=== PATIENT | male | born 1990 | race Caucasian/White ===

== ENCOUNTER 2024-05-14 20:23 | Emergency (ER) | payer OTHER, SELFPAY ==
--- NOTE | ~2024-05-14 | XR_ITS ---
EXAMINATION: XR CHEST CLINICAL INFORMATION: Chest pain COMPARISON: None available. TECHNIQUE: 2 views of the chest were obtained. FINDINGS: No significant abnormality is noted involving the heart, lungs, mediastinum, bony thorax or soft tissues. XR/XR chest 2V IMPRESSION: Unremarkable examination. Electronically signed by: Sushant Wilburn DO 05/14/2024 09:52 PM EDT
--- NOTE | 2024-05-14 20:27 | ECG_ITS ---
Test Reason : CHEST PAIN Blood Pressure : / mmHG Vent. Rate : 102 BPM Atrial Rate : 102 BPM P-R Int : 150 ms QRS Dur : 094 ms QT Int : 310 ms P-R-T Axes : 059 -44 050 degrees QTc Int : 404 ms Sinus tachycardia Left axis deviation Nonspecific T wave abnormality Abnormal ECG No previous ECGs available Referred By: Ericka Wood Electronically Signed By:EDGAR DUMAS
[2024-05-14 20:43] VITALS: BP 138/95; PULSE 101; RESP 16; TEMP 36.9; O2SAT 94; BMI 32.5
--- NOTE | 2024-05-14 21:18 | ED.CHESTPAIN ---
HPI - Chest Pain General Chief Complaint: Chest Pain Stated Complaint: chest pressure Time Seen by Provider: 05/14/24 23:37 Source: patient Mode of arrival: ambulatory Limitations: no limitations History of Present Illness ED Provider: ginger ESTRADA narrative: Patient is 34 years old otherwise healthy no significant past medical history noticed right-sided chest pain since earlier today patient had COVID 3 weeks ago hardly has cough at this time no shortness a breath no leg pain Related Data Allergies Allergy/AdvReac Type Severity Reaction Status Date / Time cat dander [CAT] Allergy Unknown DIFF Verified 05/14/24 20:45 BREATHING - WATERY EYES Review of Systems Review of Systems: Yes all other systems are reviewed and are negative PMFSH Past Medical History Surgical History H/O colonoscopy Family History Family History Father No problems noted. Mother Melanoma Sister Crohn disease Social History Social History Alcohol intake: current Alcohol intake frequency: a few times a month Advance Directives: No Advance Directives Information Provided: Yes Do you have a plan to hurt others: No Plan Physical Exam Vital Signs: Vital Signs: Last Vital Signs Temp 98.0 F 05/15/24 00:23 Pulse 68 05/15/24 00:23 Resp 16 05/15/24 00:23 BP 114/76 05/15/24 00:23 Pulse Ox 96 05/15/24 00:23 O2 Del Method Room Air 05/15/24 00:23 BMI result Body Mass Index 32.5 Appearance: Alert. Oriented X3. No acute distress. Eyes: No pallor or icterus ENT: Pharynx normal. Oral Mucosa moist Neck: Normal inspection. Neck supple. CVS: Normal heart rate and rhythm. Pulses normal. No murmur rub or gallop Respiratory: No respiratory distress. Equal air entry bilateral, no wheezing/rales/rhonchi Abdomen: Soft and nontender. Bowel sounds are present, Skin: Skin warm and dry. Normal skin color. Normal skin turgor. Extremities: No lower extremity edema. No calf tenderness Neuro: Oriented X 3. No motor deficit. Course Course Course Narrative: This is an RME: Additional HPI, ROS, PE not included below will be deferred to primary provider. RME assessment and note performed by: Ericka Wood PA-C This is a 34-year-old male who presents emergency department with complaints of chest pressure which started yesterday. Shortness a breath no nausea, vomiting, diarrhea, no dizziness, no changes in vision. Plan: Labs, EKG, chest x-ray, further ER evaluation needed. Medical Decision Making Medical Decision Making [facility] Narrative: Patient has atypical right-sided chest pain noncardiac in nature low risk for PE cardiac enzymes negative labs are stable chest x-ray negative CTA done was negative for PE will discharge patient home advised to take ibuprofen as needed Differential Diagnosis Differential Diagnoses: The differential diagnosis associated with the presentation includes ACS/PE/musculoskeletal/pneumonia/pneumothorax Lab Data [facility] Lab Attestation statement: I reviewed the patient's lab results. 05/14/24 21:48 05/14/24 21:48 Labs: Lab Results 05/14/24 Range/Units 21:48 WBC 8.1 (4.8-10.8) X10*3/uL RBC 5.69 (4.60-5.80) X10*6/uL Hgb 16.0 (14.0-18.0) g/dl Hct 46.5 (42.0-52.0) % MCV 81.7 (80.0-98.0) fL MCH 28.1 (27.0-33.0) pg MCHC 34.4 (31.0-36.0) g/dl RDW 12.8 (11.0-16.0) % Plt Count 277 (160-400) X10*3/uL MPV 9.1 L (9.4-12.4) fL Immature Gran % (Auto) 0.4 (0.0-0.4) % Neut % (Auto) 66.5 (45-73) % Lymph % (Auto) 21.8 (20-40) % Nuckolls % (Auto) 7.9 (2-11) % Eos % (Auto) 2.7 (0-4) % Baso % (Auto) 0.7 (0-2) % Lymph # (Auto) 1.8 (1.2-4.9) X10*3/uL Nuckolls # (Auto) 0.6 (0.1-1.2) X10*3/uL Eos # (Auto) 0.2 (0.0-0.4) X10*3/uL Baso # (Auto) 0.1 (0.0-0.2) X10*3/uL Abs Immat Gran (auto) 0.03 (0.00-0.03) X10*3/uL Absolute Neuts (auto) 5.4 (2.0-8.3) x10*3/uL Absolute Nucleated RBC 0.000 (0.0-0.012) X10*3/uL Nucleated RBC % (auto) 0.0 (0.0-0.2) /100WBC Sodium 142 (135-145) mmol/L Potassium 3.8 (3.3-5.1) mmol/L Chloride 106 (96-108) mmol/L Carbon Dioxide 26 (22-29) mmol/L Anion Gap 14 (12-20) BUN 12 (9-16) mg/dL Creatinine 1.03 (0.5-1.4) mg/dL Estim Creat Clear Calc 111.5 Estimated GFR > 60 Random Glucose 111 (60-115) mg/dL Calcium 9.6 (8.4-10.2) mg/dL Magnesium 2.1 (1.6-2.6) mg/dL Total Bilirubin 0.5 (0.0-1.0) mg/dL Direct Bilirubin 0.2 (0.0-0.5) mg/dL AST 18 (5-37) U/L ALT 26 (0-40) U/L Alkaline Phosphatase 81 (39-117) U/L Troponin I High Sens < 2.7 (<3.5-35.0) ng/L Total Protein 7.7 (6.5-8.0) g/dL Albumin 4.4 (3.5-5.0) g/dL Influenza Type A (PCR) NEGATIVE (Negative) Influenza Type B (PCR) NEGATIVE (Negative) RSV RNA Qual (PCR) NEGATIVE (Negative) SARS-CoV-2 RNA (RT-PCR) NEGATIVE (Negative) Independent Interpretation I performed an independent interpretation of an: EKG and Plain X-Ray Interpretation: Sinus tachycardia heart rate on 2 beats per minute left axis deviation no acute ST-T changes no acute ischemia Radiology Impression Discussion of test interpretation with radiology: I have reviewed the radiologist's reading. Discharge Plan Discharge Clinical Impression: Atypical chest pain Patient Disposition: Home, Self-Care Instructions: Noncardiac Chest Pain (ED) Additional Instructions: Cause of right-sided chest pain not clear likely musculoskeletal Follow up with your PCP for further evaluation Tylenol/ibuprofen for pain Interventions: ED Discharge Assessment Last Done: 05/15/24 00:23 Discharge Date/Time: 05/15/24 00:24 Print Language: Tamazight
[2024-05-14 21:53] LABS: MANUAL DIFF FLAG NO
[2024-05-14 21:58] LABS: Basophils Absolute Auto 0.1 X10*3/uL (0.0-0.2); Basophils Percent Auto 0.7 % (0-2); Eosinophils Absolute Auto 0.2 X10*3/uL (0.0-0.4); Eosinophils Percent Auto 2.7 % (0-4); Hematocrit 46.5 % (42.0-52.0); Imm Gran Abs Auto 0.03 X10*3/uL (0.00-0.03); Imm Gran Pct Auto 0.4 % (0.0-0.4); Lymphocytes Absolute Auto 1.8 X10*3/uL (1.2-4.9); Lymphocytes Percent Auto 21.8 % (20-40); Mean Corpuscular HGB Conc 34.4 g/dl (31.0-36.0); Mean Corpuscular Hemoglobin 28.1 pg (27.0-33.0); Mean Corpuscular Volume 81.7 fL (80.0-98.0); Mean Platelet Volume 9.1 fL (9.4-12.4); Monocytes Absolute Auto 0.6 X10*3/uL (0.1-1.2); Monocytes Percent Auto 7.9 % (2-11); Neutrophils Absolute Auto 5.4 x10*3/uL (2.0-8.3); Neutrophils Percent Auto 66.5 % (45-73); Platelet Count 277 X10*3/uL (160-400); Red Blood Count 5.69 X10*6/uL (4.60-5.80); Red Cell Distribution Width 12.8 % (11.0-16.0); White Blood Count 8.1 X10*3/uL (4.8-10.8)
[2024-05-14 22:09] LABS: Alanine Aminotransferase 26 U/L (0-40); Albumin Level 4.4 g/dL (3.5-5.0); Alkaline Phosphatase 81 U/L (39-117); Anion Gap 14 (12-20); Aspartate Amino Transferase 18 U/L (5-37); Bilirubin Direct 0.2 mg/dL (0.0-0.5); Bilirubin Total 0.5 mg/dL (0.0-1.0); Blood Urea Nitrogen 12 mg/dL (9-16); Calcium 9.6 mg/dL (8.4-10.2); Carbon Dioxide 26 mmol/L (22-29); Chloride 106 mmol/L (96-108); Creatinine Clr Calc Pharmacy 111.5; Estimated Glomerular Filt Rate > 60; Glucose Random 111 mg/dL (60-115); Magnesium 2.1 mg/dL (1.6-2.6); Potassium 3.8 mmol/L (3.3-5.1); Sodium 142 mmol/L (135-145); Total Protein 7.7 g/dL (6.5-8.0)
[2024-05-14 22:16] LABS: Troponin-I High Sensitivity < 2.7 ng/L (<3.5-35.0)
[2024-05-14 22:34] LABS: Influenza A PCR NEGATIVE (Negative); Influenza B PCR NEGATIVE (Negative); Resp Syncy Virus RNA Qual PCR NEGATIVE (Negative); SARS COV2 PCR INHOUSE NEGATIVE (Negative)
[2024-05-14 23:11] VITALS: BP 128/77; PULSE 78; RESP 16; TEMP 37.1; O2SAT 96
[2024-05-15 00:23] VITALS: BP 114/76; PULSE 68; RESP 16; TEMP 36.7; O2SAT 96
== END 2024-05-15 00:24 | disposition home or self-care (01) ==
PROVIDERS: Physician Assistant Medical; Emergency Provider Internal Medicine; PCP Nurse Practitioner Family
DX: R07.89 Other chest pain (principal); Z79.899 Other long term (current) drug therapy; Z03.818 Encounter for observation for suspected exposure to other biological agents ruled out
CPT/HCPCS: 0241U; 71046; 80048; 80076; 83735; 84484; 85025; 93005; 99283

== ENCOUNTER 2024-05-28 08:11 | Outpatient (AMB) | payer OTHER, SELFPAY ==
[2024-05-28 08:14] VITALS: BP 110/72; PULSE 79; O2SAT 98; BMI 32.6
--- NOTE | 2024-05-28 08:14 | A.OFFPC_ITS ---
Vital Signs 05/28/24 08:14 Height 5 ft 7 in Weight 208 lb BMI 32.6 BP 110/72 Blood Pressure Location Rt brachial Position Sitting Pulse 79 Pulse Source Pulse Oximeter Pulse Oximetry (%) 98 Intake Visit Reasons: Ed f/u Intake Note: pt is here for ED follow up Allergies cat dander [CAT] Allergy (Unknown, Verified 05/28/24 09:00) DIFF BREATHING - WATERY EYES Medication List - Last Reconciled 05/28/24 by YOAN Moss No Known Home Meds Tobacco use date assessed: 05/28/24 Dental Screening Dental Screen Date: 05/28/24 Did you have a dental visit in the last 12 months?: Yes Did you have a dental problem in the last 6 months where you did not have access to dental care?: No Was dental information given to patient?: Patient has dentist HPI Ed f/u HPI Details Pt was seen in the ER on 05/14 c/o right-sided chest pain. EKG was negative for ischemia. Chest XR was negative. Chest CTA was negative for PE. Today, pt reports doing better. He reports that he took pepcid which helped his symptoms. Denies chest pain, shortness of breath, and dizziness. Pt knows to go to the ER with any worsening symptoms. PFSH Surgical History H/O colonoscopy Family History Father No problems noted. 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 1. Little interest or pleasure in doing things: not at all 2. Feeling down, depressed, or hopeless: not at all 3. Trouble falling or staying asleep, or sleeping too much: not at all 4. Feeling tired or having little energy: not at all 5. Poor appetite or overeating: not at all 6. Feeling bad about yourself - or that you are a failure or have let yourself or your family down: not at all 7. Trouble concentrating on things, such as reading the newspaper or watching television: not at all 8. Moving or speaking so slowly that other people could have noticed. Or the opposite - being so fidgety or restless that you have been moving around a lot more than usual: not at all 9. Thoughts that you would be better off or of hurting yourself in some way: not at all Total score: 0 Depression Screening Interpretation: Negative Depression Screening Done: Yes 67493 - PHQ-9 Billing: Yes Source: Developed by Drs. Toni Jenkins, Kalli Christian, Blaise Marquez and colleagues, with an educational chase from [employer]. Thrive Questionnaire Date Thrive assessed: 05/28/24 I am a: Patient What is your living situation today?: I have a steady place to live Within the past 12 months, did the food you bought not last and you didn't have the money to get more?: Never true Within the past 12 months, did you worry whether your food would run out before you got money to buy more?: Never true Do you have trouble paying for medicines?: No Do you have trouble getting transportation to medical appointments?: No Do you have trouble paying your heating and electricity bill?: No Do you have trouble taking care of your child, family member or friend?: No Do you have trouble with day-to-day activities such as bathing, preparing meals, shopping, managing finances, etc.?: No Are you currently unemployed and looking for a job?: No Are you interested in more education?: No Please select the resources that you would like help with: None Currently or been in a relationship where the following occur: No concerns reported THRIVE Score: 0 AUDIT C Alcohol Use Questionnaire (AUDIT-C) 1. How often do you have a drink containing alcohol?: Monthly or less 2. How many drinks containing alcohol do you have on a typical day when you are drinking?: 1 or 2 3. How often do you have six or more drinks on one occasion?: Never Total Score: 1 Score Reviewed/Action Taken: Yes BURT-7 AMB Questionnaire BURT-7 Date BURT - 7 assessed: 05/28/24 Feeling nervous, anxious, or on edge: 0 = Not at all Not being able to stop or control worryin = Not at all Worrying too much about different things: 0 = Not at all Trouble relaxin = Not at all Being so restless that it is hard to sit still: 0 = Not at all Becoming easily annoyed or irritable: 0 = Not at all Feeling afraid as if something awful might happen: 0 = Not at all Total BURT-7 score (0-4 normal; 5-9 mild; 10-14 moderate; 15-21 severe): 0 Source: Developed by Drs. Toni Jenkins, Kalli Christian, Blaise Marquez and colleagues, with an educational chase from [employer]. BURT-7 Assessment Billing BURT-7 Assessment Tool: BURT-7 Assessment 40643 Review of Systems Const Reports as per HPI Physical exam (Primary Care) Vital Signs: Last Vital Signs Pulse 79 05/28/24 08:14 BP 110/72 05/28/24 08:14 Pulse Ox 98 05/28/24 08:14 BMI result Body Mass Index 32.6 Tobacco/Smoking Status: Tobacco use Status Tobacco use date assessed 05/28/24 05/28/24 08:15 Patient Tobacco Use Status Never used Tobacco 05/28/24 08:15 e-Cigarette/Vaping Use Never Used 05/28/24 08:15 PHQ-9: PHQ-9 Score PHQ-9: Total score 0 05/28/24 08:27 Depression Screening Interpretation: Negative Thrive Assessment: Date of Thrive Assessment Date Thrive assessed 05/28/24 05/28/24 08:27 Currently or been in a relationship where the following occur: No concerns reported Const General: cooperative Orientation/consciousness: patient oriented x3 Resp Effort & Inspection: normal respiratory effort Auscultation: clear to auscultation bilaterally Cardio Rate: regular rate Rhythm: regular rhythm Heart sounds: S1 normal heart sound present and S2 normal heart sound present Neuro General: patient oriented x3 Psych Appearance: grossly normal Mental Status: mental status grossly normal Speech and movement: Normal speech and movement present Affect: normal affect Attitude: cooperative Thought process: Normal thought process present Thought content: Normal thought content present Insight: Good insight present (Psych) Judgement: Good judgement present (Psych) Assessment and Plan Assessment & Plan (1) Chest discomfort: Code(s): R07.89 - Other chest pain Plan: Symptoms have improved (2) GERD (gastroesophageal reflux disease): Code(s): K21.9 - Gastro-esophageal reflux disease without esophagitis Plan: Continue pepcid prn Plan The patient agreed to the use of a administrative medical director for this encounter. Scribed for ИРИНА Verde- by Twila Damon administrative medical director, on 05/28/2024 at 08:25 EST. Orders: Orders Complete Blood Count Auto Diff Today K21.9 - Gastro-esophageal reflux disease without esophagitis, R07.89 - Other chest pain Comprehensive [place]. Panel Fast Today K21.9 - Gastro-esophageal reflux disease without esophagitis, R07.89 - Other chest pain TSH reflex Free T4 Today K21.9 - Gastro-esophageal reflux disease without esophagitis, R07.89 - Other chest pain UA CC w/rflx Micro + Cult Today K21.9 - Gastro-esophageal reflux disease without esophagitis, R07.89 - Other chest pain Lipid Panel Today K21.9 - Gastro-esophageal reflux disease without esophagitis, R07.89 - Other chest pain Coding Level of Care Code Est Pt Level 3 (39138) Diagnoses Chest discomfort R07.89 GERD (gastroesophageal reflux disease) K21.9 Additional Codes BURT-7 Assessment Billing - BURT-7 Assessment Tool: BURT-7 Assessment 07855 ([id number])
== END 2024-05-28 08:33 | disposition home or self-care (01) ==
PROVIDERS: PCP Nurse Practitioner Family; Visit Provider Nurse Practitioner Family
DX: R07.89 Other chest pain (principal); K21.9 Gastro-esophageal reflux disease without esophagitis

== ENCOUNTER → 2024-05-28 08:11 | Outpatient (BNVA) | payer OTHER, SELFPAY | PROVIDERS: PCP Nurse Practitioner Family; Visit Provider Nurse Practitioner Family | DX: R07.89 Other chest pain (principal); K21.9 Gastro-esophageal reflux disease without esophagitis | CPT/HCPCS: 96127 ==

== ENCOUNTER 2024-06-01 10:38 | Outpatient (REF) | payer OTHER, SELFPAY ==
[2024-06-01 13:20] LABS: MANUAL DIFF FLAG NO
[2024-06-01 13:42] LABS: Basophils Absolute Auto 0.1 X10*3/uL (0.0-0.2); Eosinophils Absolute Auto 0.2 X10*3/uL (0.0-0.4); Eosinophils Percent Auto 3.7 % (0-4); Hematocrit 48.2 % (42.0-52.0); Hemoglobin 16.1 g/dl (14.0-18.0); Imm Gran Abs Auto 0.03 X10*3/uL (0.00-0.03); Imm Gran Pct Auto 0.5 % (0.0-0.4); Lymphocytes Absolute Auto 1.8 X10*3/uL (1.2-4.9); Lymphocytes Percent Auto 30.5 % (20-40); Mean Corpuscular HGB Conc 33.4 g/dl (31.0-36.0); Mean Corpuscular Hemoglobin 27.7 pg (27.0-33.0); Monocytes Absolute Auto 0.4 X10*3/uL (0.1-1.2); Monocytes Percent Auto 7.5 % (2-11); Neutrophils Absolute Auto 3.4 x10*3/uL (2.0-8.3); Neutrophils Percent Auto 56.8 % (45-73); Platelet Count 262 X10*3/uL (160-400); Red Blood Count 5.81 X10*6/uL (4.60-5.80); Red Cell Distribution Width 13.2 % (11.0-16.0); White Blood Count 5.9 X10*3/uL (4.8-10.8)
[2024-06-01 13:48] LABS: Appearance Urine Clear; Color Urine Yellow; Glucose Urine UA Negative (Negative); Leukocyte Esterase Urine Negative (Negative); Nitrite Urine Negative (Negative); Urine Blood Negative (Negative); Urine Ketones Negative (Negative); Urine Protein Negative (Neg-Trace)
[2024-06-01 14:20] LABS: Alanine Aminotransferase 30 U/L (0-40); Albumin Level 4.2 g/dL (3.5-5.0); Alkaline Phosphatase 73 U/L (39-117); Anion Gap 11 (12-20); Aspartate Amino Transferase 19 U/L (5-37); Bilirubin Total 0.7 mg/dL (0.0-1.0); Blood Urea Nitrogen 12 mg/dL (9-16); Calcium 9.7 mg/dL (8.4-10.2); Carbon Dioxide 27 mmol/L (22-29); Chloride 105 mmol/L (96-108); Cholesterol 139 mg/dL (<200); Estimated Glomerular Filt Rate > 60; Glucose Fasting 82 mg/dL (60-99); HDL Cholesterol 35 mg/dL (>40); LDL Cholesterol Calculated 87 mg/dL (<100); Potassium 4.2 mmol/L (3.3-5.1); Sodium 139 mmol/L (135-145); TSH reflex Free T4 0.98 uIU/mL (0.32-4.0); Total Protein 7.3 g/dL (6.5-8.0); Triglycerides 87 mg/dL (<150)
== END 2024-06-01 10:39 | disposition home or self-care (01) ==
LOC: HO.HMGCLDS 10:38
PROVIDERS: PCP Nurse Practitioner Family; Visit Provider Nurse Practitioner Family
DX: R07.89 Other chest pain (principal); K21.9 Gastro-esophageal reflux disease without esophagitis
CPT/HCPCS: 36415; 80053; 80061; 81003; 84443; 85025

== ENCOUNTER 2025-06-17 09:07 | Outpatient (AMB) | payer OTHER, SELFPAY ==
--- NOTE | 2025-06-17 09:11 | MHC.PC.OV ---
Vital Signs 06/17/25 09:12 Height 5 ft 7 in Weight 214 lb BMI 33.5 BP 124/82 Blood Pressure Location Lt brachial Position Sitting Respiration 16 Pulse 88 Pulse Source Pulse Oximeter Pulse Oximetry (%) 96 Oxygen Delivery Method Room Air Intake Visit Reasons: Annual visit Afloat Cryptologic Manager Required: No Accompanied by: Self / Same As Patient Allergies cat dander (CAT) Allergy (Unknown, Verified 06/17/25 09:22) DIFF BREATHING - WATERY EYES Tobacco use date assessed: 06/17/25 Dental Screening Dental Screen Date: 06/17/25 Did you have a dental visit in the last 12 months?: Yes Did you have a dental problem in the last 6 months where you did not have access to dental care?: No Was dental information given to patient?: Patient has dentist HPI Annual visit HPI Details History of Present Illness The patient is a 35-year-old male presenting for a physical examination. He denies experiencing any chest pain, dyspnea, hematochezia, constipation, diarrhea, or urinary issues. Additionally, he denies any suicidal or homicidal ideation and reports doing quite well overall. Health Maintenance Social History Review of Systems - Cardiovascular: Denies chest pain - Respiratory: Denies dyspnea - Gastrointestinal: Denies hematochezia, constipation, diarrhea - Genitourinary: Denies urinary issues - Psychiatric: Denies suicidal ideation, denies homicidal ideation Physical Exam General: Cooperative, healthy appearing, comfortable, no acute distress and well developed Orientation: Patient oriented x3 Limitations: No limitations Head: Normal to inspection Ears: Hearing grossly normal bilaterally Nose: Normal external nose present Face and sinus: Normal facial exam Eyes: Appearance normal, both eyes and all related structures Neck: Normal visual inspection and Yes full ROM Respiratory: Normal respiratory effort and able to speak in complete sentences. Clear to auscultation bilaterally Cardiovascular: Regular rate and rhythm. Normal S1 and S2 GI: Normal to inspection. Soft to palpation and nontender : testicles without masses/lesions and no hernias appreciated Skin: No rashes or lesions noted Neuro: Patient oriented x3 Extremities: Normal to inspection Results Plan Discussion Notes I discussed with the patient that the physical examination was benign and that we will proceed with laboratory tests in the near future, which should be done fasting. We will contact him with the results once they are available. Patient Instructions - Schedule and complete fasting laboratory tests as discussed. - Await contact for lab results. PFSH Surgical History H/O colonoscopy Family History Father No problems noted. 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 1. Little interest or pleasure in doing things: not at all 2. Feeling down, depressed, or hopeless: not at all 3. Trouble falling or staying asleep, or sleeping too much: not at all 4. Feeling tired or having little energy: not at all 5. Poor appetite or overeating: not at all 6. Feeling bad about yourself - or that you are a failure or have let yourself or your family down: not at all 7. Trouble concentrating on things, such as reading the newspaper or watching television: not at all 8. Moving or speaking so slowly that other people could have noticed. Or the opposite - being so fidgety or restless that you have been moving around a lot more than usual: not at all 9. Thoughts that you would be better off or of hurting yourself in some way: not at all Total score: 0 Depression Screening Interpretation: Negative Depression Screening Done: Yes 14790 - PHQ-9 Billing: Yes Source: Developed by Drs. Toni Jenkins, Kalli Christian, Blaise Marquez and colleagues, with an educational chase from [employer]. Thrive Questionnaire Date Thrive assessed: 06/15/25 I am a: Patient What is your living situation today?: I have a steady place to live Within the past 12 months, did the food you bought not last and you didn't have the money to get more?: Never true Within the past 12 months, did you worry whether your food would run out before you got money to buy more?: Never true Do you have trouble paying for medicines?: No Do you have trouble getting transportation to medical appointments?: No Do you have trouble paying your heating and electricity bill?: No Do you have trouble taking care of your child, family member or friend?: No Do you have trouble with day-to-day activities such as bathing, preparing meals, shopping, managing finances, etc.?: No Are you currently unemployed and looking for a job?: No Are you interested in more education?: No Please select the resources that you would like help with: None Currently or been in a relationship where the following occur: No concerns reported THRIVE Score: 0 AUDIT C Alcohol Use Questionnaire (AUDIT-C) 1. How often do you have a drink containing alcohol?: 2-4 times a month 2. How many drinks containing alcohol do you have on a typical day when you are drinking?: 1 or 2 3. How often do you have six or more drinks on one occasion?: Less than monthly Total Score: 3 BURT-7 AMB Questionnaire BURT-7 Date BURT - 7 assessed: 06/17/25 Feeling nervous, anxious, or on edge: 0 = Not at all Not being able to stop or control worryin = Not at all Worrying too much about different things: 0 = Not at all Trouble relaxin = Not at all Being so restless that it is hard to sit still: 0 = Not at all Becoming easily annoyed or irritable: 0 = Not at all Feeling afraid as if something awful might happen: 0 = Not at all Total BURT-7 score (0-4 normal; 5-9 mild; 10-14 moderate; 15-21 severe): 0 Source: Developed by Drs. Toni Jenkins, Kalli Christian, Blaise Marquez and colleagues, with an educational chase from [employer]. BURT-7 Assessment Billing BURT-7 Assessment Tool: BURT-7 Assessment 69232 Physical exam (Primary Care) Vital Signs: Last Vital Signs Pulse 88 06/17/25 09:12 Resp 16 06/17/25 09:12 BP 124/82 06/17/25 09:12 Pulse Ox 96 06/17/25 09:12 Oxygen Delivery Method Room Air 06/17/25 09:12 BMI result Body Mass Index 33.5 Tobacco/Smoking Status: Tobacco use Status Tobacco use date assessed 06/17/25 06/17/25 09:16 Patient Tobacco Use Status Never used Tobacco 06/17/25 09:16 e-Cigarette/Vaping Use Never Used 06/17/25 09:16 PHQ-9: PHQ-9 Score PHQ-9: Total score 0 06/17/25 09:16 Depression Screening Interpretation: Negative Thrive Assessment: Date of Thrive Assessment Date Thrive assessed 06/15/25 06/17/25 09:16 Currently or been in a relationship where the following occur: No concerns reported Coding Level of Care Code Est Pt Prev Care 18-39y(06163) Diagnoses Physical exam Z00.00 Additional Codes BURT-7 Assessment Billing - BURT-7 Assessment Tool: BURT-7 Assessment 35548 ([id number]) PHQ-9 - 99499 - PHQ-9 Billing: Yes ([id number]) Assessment & Plan Assessment & Plan (1) Physical exam: Code(s): Z00.00 - Encounter for general adult medical examination without abnormal findings Category: Medical Plan . Orders: Orders TSH reflex Free T4 Today Z00.00 - Encounter for general adult medical examination without abnormal findings Complete Blood Count Auto Diff Today Z00.00 - Encounter for general adult medical examination without abnormal findings Comprehensive [place]. Panel Fast Today Z00.00 - Encounter for general adult medical examination without abnormal findings UA CC w/rflx Micro + Cult Today Z00.00 - Encounter for general adult medical examination without abnormal findings Lipid Panel Today Z00.00 - Encounter for general adult medical examination without abnormal findings
[2025-06-17 09:12] VITALS: BP 124/82; PULSE 88; RESP 16; O2SAT 96; BMI 33.5
== END 2025-06-17 09:26 | disposition home or self-care (01) ==
LOC: HO.HMCC 09:08
PROVIDERS: PCP Nurse Practitioner Family; Visit Provider Nurse Practitioner Family
DX: Z00.00 Encounter for general adult medical examination without abnormal findings (principal)

== ENCOUNTER → 2025-06-17 09:07 | Outpatient (BNVA) | payer OTHER, SELFPAY | PROVIDERS: PCP Nurse Practitioner Family; Visit Provider Nurse Practitioner Family | DX: Z00.00 Encounter for general adult medical examination without abnormal findings (principal); Z13.31 Encounter for screening for depression; Z13.39 Encounter for screening examination for other mental health and behavioral disorders | CPT/HCPCS: 96127 ==